=== PATIENT | male | born 1980 | race African-American/Black ===

== ENCOUNTER 2017-11-03 10:57 | Emergency (ER) | payer SELFPAY ==
[~2017-11-03] VITALS: Ht 177.8 cm; Wt 70.5 kg
[2017-11-03 10:58] VITALS: BP 123/69; PULSE 77; RESP 16; TEMP 98.1; O2SAT 99
--- NOTE | 2017-11-03 11:46 | RADRPT ---
EXAM DATE/TIME: 11/03/2017 11:19 [place] COMPARISON: No previous studies available for comparison. INDICATIONS : Left shoulder pain; fall yesterday. MEDICAL HISTORY : None. SURGICAL HISTORY : None. ENCOUNTER: Initial ACUITY: 2 days PAIN SCORE: 8/10 LOCATION: Left shoulder. FINDINGS: Multiple view examination of the left shoulder demonstrates no evidence of fracture or dislocation. The glenohumeral and acromioclavicular joints are maintained. There is normal range of motion betwee n internal and external rotation. Bony mineralization is normal. CONCLUSION: No acute disease. Yony Lagos MD on November 03, 2017 at 11:44 Board Certified Radiologist. This report was verified electronically.
[2017-11-03] MEDS ORDERED: IBUP1TAB7 PO (11:55)
--- NOTE | 2017-11-03 11:56 | PD ---
HPI Chief Complaint: Injury Time Seen by Provider: 11:48 Travel History International Travel<30 days: No Contact w/Intl Traveler<30days: No Traveled to known affect area: No History of Present Illness HPI 37-year-old male presents emergency Department with complaint of left shoulder pain after falling on it yesterday. He slipped off the side of the trailer landing on his shoulder. Arm was not outstretched. Denies hitting his head or loss of consciousness. Denies neck pain or back pain. Denies paresthesias, loss of sensation to the affected extremity. Reports decreased range of motion at the shoulder. Has taken Advil for symptom management. Rates pain 8/10. Worse with movement. Better at rest. Describes as stabbing. Denies significant past medical history. No known allergies. No primary care provider. Has no other medical complaints. No other modifying factors or associated signs and symptoms. PFSH Social History Tobacco Use: No Allergies-Medications (Allergen,Severity, Reaction): Coded Allergies: No Known Allergies (Unverified , 11/03/17) Reported Meds & Prescriptions Reported Meds & Active Scripts Active Ibuprofen 800 Mg Tab 800 Mg PO Q6HR PRN Review of Systems Except as stated in HPI: all other systems reviewed are Neg Physical Exam Narrative GENERAL: Well-nourished, well-developed black male patient, in no acute distress SKIN: Warm and dry. HEAD: Atraumatic. Normocephalic. EYES: Pupils equal and round. No scleral icterus. No injection or drainage. ENT: Mucosa pink and moist. Airway patent. NECK: Supple. Trachea midline. CARDIOVASCULAR: Regular rate. RESPIRATORY: No accessory muscle use. GASTROINTESTINAL: Flat. MUSCULOSKELETAL: No obvious deformities. No clubbing. No cyanosis. No edema. Left shoulder with decreased range of motion; abduction greater than 45 abduction; left shoulder with no obvious deformities; no erythema, edema, ecchymosis; joint stable; shoulder equal. Left upper extremity supple and non- tense with 2+ radial pulses and sensory intact. NEUROLOGICAL: Awake and alert. Oriented 3. No obvious cranial nerve deficits. Motor grossly within normal limits. Normal speech. PSYCHIATRIC: Appropriate mood and affect; insight and judgment normal. Data Data Last Documented VS Vital Signs Date Time Temp Pulse Resp B/P (MAP) Pulse Ox O2 Delivery O2 Flow Rate FiO2 11/03/17 10:58 98.1 77 16 123/69 (87) 99 Room Air Orders Orders Shoulder, Complete (>2vws) (11/03/17 ) Sling Cradle Arm (11/03/17 ) Ed Discharge Order (11/03/17 11:56) Ibuprofen (Motrin) (11/03/17 12:00) MDM Medical Decision Making Medical Screen Exam Complete: Yes Emergency Medical Condition: Yes Medical Record Reviewed: Yes Differential Diagnosis Contusion, fracture, dislocation, joint separation Narrative Course 37-year-old male with left shoulder injury. Left shoulder x-ray ordered in triage. Ibuprofen ordered. 1210: Left shoulder x-ray with no acute findings. Provided the patient a copy of the x-ray report. Arm sling [employer] for support. Instructed patient to follow up if symptoms persist greater than 7-10 days. Ibuprofen prescribed for home. Instructed patient to follow up with primary care provider. Patient verbalizes understanding and agreement with treatment plan. Patient is medically cleared and stable for discharge. Discussed reasons to return to the emergency department. Patient agrees with treatment plan. The patients vital signs are stable and the patient is stable for outpatient follow-up and treatment. Patient discharged home, stable and in no acute distress. Diagnosis Primary Impression: Injury of left shoulder Qualified Codes: S49.92XA - Unspecified injury of left shoulder and upper arm , initial encounter Referrals: [facility] Orthopaedic Surgeon Primary Care Physician Patient Instructions: General Instructions, Shoulder Sprain (ED) Additional Instructions: Tylenol or ibuprofen as needed and as directed to reduce pain and inflammation Rest, ice, and compress extremety to decrease pain and inflammation Arm sling for support; avoid prolonged use of arm sling to decrease risk of frozen shoulder Avoid aggravating activity; increase activity as tolerated Follow-up with primary care provider Follow-up with orthopedics if symptoms persist greater than 7-10 days Return to the emergency department immediately with worsening symptoms Med/Other Pt SpecificInfo: Prescription(s) given Scripts Ibuprofen (Ibuprofen) 800 Mg Tab 800 MG PO Q6HR Y for PAIN, #30 TAB 0 Refills Prov: Laura Breaux 11/03/17 Disposition: 01 DISCHARGE HOME Condition: Stable Laura Breaux Nov 03, 2017 11:56
[2017-11-03] MEDS ORDERED: IBUPROFEN 800 MG TAB PO ONE (12:00)
== END 2017-11-03 12:35 | disposition home or self-care (01) ==
LOC: NEPD 10:57
DX: S49.92XA Unspecified injury of left shoulder and upper arm, initial encounter (principal); W01.0XXA Fall on same level from slipping, tripping and stumbling without subsequent striking against object, initial encounter; Y92.029 Unspecified place in mobile home as the place of occurrence of the external cause
CPT/HCPCS: 73030; 99283